=== PATIENT | male | born 1990 | race Caucasian/White ===

== ENCOUNTER 2024-05-01 08:44 | Emergency (ER) | payer BC, SELFPAY ==
[2024-05-01 08:53] VITALS: BP 128/76
[2024-05-01] MEDS: KEFLEX 500 MG PO (09:23)
[2024-05-01] MEDS: TORADOL 30 MG IM (09:23)
--- NOTE | 2024-05-01 09:23 | ED.GENMED ---
History of Present Illness
General
Chief Complaint: Musculo-Skeletal Complaint
Source: patient
Exam Limitations: none
Time Seen by Provider: 05/01/24 08:57
Nursing documentation reviewed up to this point in time: agreed with
History of Present Illness
History of Present Illness:
34-year-old male presenting to the emergency department today with concern of swelling discomfort to the left big toe over the past day. Denies any known injuries no fevers no systemic symptoms. No history of immunosuppression. No history of gout.
Past History
Past History
ED Past Medical History: Psychiatric (depression) and Other (seasonal allergies)
ED Past Surgical History: Appendectomy
Social History
Tobacco: Non-smoker
Alcohol: Occasional
Personal:
Living: with family
Employment: Employed
Review of Systems
Review of Systems
Allergies reviewed?: Yes
All Other Systems: ROS reviewed and negative except as documented in HPI and ROS
Phy Exam
Physical Exam
Physical Exam:
GENERAL: Alert , in no apparent distress
EYE: pupils equal and reactive
NECK: Supple, no significant adenopathy.
ENT: o/p clr, mmm.
CARDIAC: Regular rate and rhythm .
LUNGS: Clear breath sounds bilaterally, no acute respiratory distress, no wheezes/rales/rhonchi
ABDOMEN: Soft, without focal tenderness, no r/g, no cvat
NEUROLOGICAL: Alert and oriented, no focal neuro deficits
SKIN: Warm and dry, skin intact.
MUSCULOSKELETAL: Redness and swelling overlying the MTP of the left foot is able to range fully at the toe but does have some discomfort when doing so. Some minimal tender palpation. No fluctuance or induration., well perfused.
PSYCH: Normal and appropriate interaction.
Course
Orders/Labs/Results
Orders:
Orders
05/01/24 09:07
Cephalexin Monohydrate [Keflex] 500 mg PO NOW STA
Ketorolac [Toradol] 30 mg IM NOW STA
05/01/24 09:08
CR Foot - Left Min 3 Views Urgent
Comment:
Reason For Exam: great toe 1st MTP
Vital Signs
Initial and Last Documented VS:
Initial Vital Signs
Temp Pulse Resp BP Pulse Ox
97.6 F 79 18 128/76 98
05/01/24 08:53 05/01/24 08:53 05/01/24 08:53 05/01/24 08:53 05/01/24 08:53
Last Documented Vital Signs
Temp Pulse Resp BP Pulse Ox
97.6 F 79 18 128/76 98
05/01/24 08:53 05/01/24 08:53 05/01/24 08:53 05/01/24 08:53 05/01/24 08:53
MDM/Problems Addressed
MDM/Problems Addressed:
34-year-old male presenting to the emergency department today for concerns of swelling to the left MTP over the past day or so. Denies specific injuries. No fevers no systemic symptoms normal vital signs on arrival. X-ray without acute
abnormalities. Symptoms are most consistent with gout flare patient be treated with NSAID low risk for patient will follow-up closely with primary care and given information for podiatry as well. Return precautions given.
*Critical Care Note
Total Time (30-74mins, 75-104mins- exclusive of procedures): Not Applicable
ED Attending Note
-
Portions of this chart may have been created with voice recognition software.� Occasional wrong word or��sound alike� substitutions may have occurred due to the inherent limitations of voice recognition software.
Discharge Plan
Departure
Patient Disposition: Home (Routine Discharge)
Date of Disposition: 05/01/24
Time of Disposition: 09:48
Patient with high blood pressure during this ER visit?: No
Condition: Good
Covid-19: Not Applicable
Discharge Problem:
Great toe pain
Instructions: Gout ED
Prescriptions:
New
naproxen 500 mg tablet
500 mg PO BID 7 Days Qty: 14 0RF
cephalexin 500 mg capsule
500 mg PO TID 5 Days Qty: 15 0RF
No Action
cetirizine 10 MG tablet
10 mg PO DAILY
fluticasone propionate 1 SPRAY spray,suspension
1 spray intranasal DAILY
escitalopram oxalate 10 MG tablet
10 mg PO DAILY
omega 3-dkn-rtl-fish oil 1,000 MG capsule
1,600 mg PO DAILY
multivitamin with folic acid [Tab-A-Rafiq] 1 TABLET tablet
1 tab PO DAILY
oxycodone-acetaminophen 5 MG/325 MG tablet
1 tab PO Q4HPRN PRN (Reason: moderate to severe pain) Qty: 8 0RF
Referrals:
Chiquita Valles DPM [Active] - Follow up in 5-7 days
Maria E Moore DO [Family Provider] -
Activity Restrictions/Additional Instructions:
You came in emergency department today with concerns of swelling to the left great toe. This is very likely to be gout. Please take the prescribed medication naproxen twice daily and Keflex to reduce risk of any possibility of infection. Return
for any worsening, new or concerning symptoms. Otherwise follow-up closely as an outpatient.
Interventions
Interventions:
*Risk Screen - Suicide Last Done: 05/01/24 08:53
*General Assessment Last Done: 05/01/24 08:53
*Neglect/Abuse Screening Last Done: 05/01/24 08:53
*ED COVID-19 Vaccine History Last Done: 05/01/24 09:45
ED-Musculoskeletal Assessment Last Done: 05/01/24 09:43
Discharge Date and Time
Print Language: GUYANESE
[2024-05-01 09:44] VITALS: BMI 34.9
--- NOTE | 2024-05-01 10:15 | EDRN ---
Reviewed discharge instructions with patient. Verbalized understanding. Ambulated with steady gait to the lobby.
[2024-05-01 10:28] VITALS: BP 128/82
== END 2024-05-01 10:20 | disposition home or self-care (01) ==
LOC: EMR 08:44
PROVIDERS: EMERGENCY PHYSICIAN Emergency Medicine; FAMILY PHYSICIAN Family Medicine
DX: M79.675 Pain in left toe(s) (principal); M79.89 Other specified soft tissue disorders
CPT/HCPCS: 96372; 99284; 73630